=== PATIENT | male | born 1980 | race Caucasian/White ===

== ENCOUNTER 2017-10-15 09:31 | Emergency (ER) | payer MEDICAID ==
--- NOTE | 2017-10-15 10:09 | EDM.PDOC ---
ED HPI GENERAL MEDICAL PROBLEM - General Chief Complaint: ENT Problem Stated Complaint: LEFT EYE Time Seen by Provider: 10/15/17 09:45 Source of Information: Reports: Patient History Limitations: Reports: No Limitations - History of Present Illness INITIAL COMMENTS - FREE TEXT/NARRATIVE: Jose was sharpening a knife yesterday when a metallic fragment was suspected to drift onto the L eye. There has been residual pain, light sensitivity, lacrimation, redness, and fb sensation since. He did not try to wash out the eye. The right eye is asx. He has taken no meds. Left Eye Pain Score (Numeric/FACES): 2 - Related Data Allergies Allergy/AdvReac Type Severity Reaction Status Date / Time No Known Allergies Allergy Verified 10/15/17 09:49 ED ROS GENERAL - Review of Systems Review Of Systems: ROS reveals no pertinent complaints other than HPI. ED EXAM GENERAL W FULL EYE - Physical Exam Exam: See Below Exam Limited By: No Limitations General Appearance: Alert, WD/WN, Mild Distress Eye Exam: Right Eye: Normal Inspection, Left Eye: Foreign Body (cornea at 5 o' clock position with rust ring), Bilateral Eye: Conjunctival Injection, EOMI, Normal Fundi, PERRL Visual Acuity (R) 20/: 20 Visual Acuity (L) 20/: 20 With Correction: No Eyelids: Bilateral: Normal Appearance Conjunctiva & Sclera: Bilateral: Injected Cornea Exam: Right: Normal Appearance, Left: Foreign Body Extraocular Movements: Bilateral: Intact Pupils: Normal Accommodation Pupillary Size: Bilateral: 4 mm Pupillary Reaction: Bilateral: Brisk Anterior Chamber: Bilateral: Normal Appearance Posterior Chamber: Bilateral: Normal Funduscopic Ears: Normal External Exam Nose: Normal Inspection Throat/Mouth: Normal Inspection, Normal Oropharynx Head: Normocephalic Neck: Supple Respiratory/Chest: Lungs Clear Cardiovascular: Regular Rate, Rhythm Back Exam: Normal Inspection Extremities: Normal Inspection Neurological: Alert, Oriented, CN II-XII Intact Psychiatric: Normal Affect, Normal Mood Skin Exam: Warm, Dry Lymphatic: No Adenopathy Course - Vital Signs Text/Narrative:: The L eye was inspected, no fb detected involving the eyelids. Following introduction of Tetracaine 0.05%, inspection of L eye detects a metallic fb with rust ring at the 5 o'clock position; no limbic blush, anterior chamber deep , posterior chamber benign; moderate conjunctival injection; no exudate; attempt to lift ferrous debris produced some flaking, but residual debris remains. Jose was scheduled to see an [employer] this am at [facility] for slit lamp procedure to remove remaining ferrous debris and manage rust ring. He left the ED in stable condition. Last Recorded V/S: Last Vital Signs Temp 37.1 C 10/15/17 09:35 Pulse 112 H 10/15/17 09:35 Resp 18 10/15/17 09:35 BP 158/89 H 10/15/17 09:35 Pulse Ox 99 10/15/17 09:35 Departure - Departure Time of Disposition: 10:00 Disposition: Home, Self-Care 01 Condition: Fair Clinical Impression: Foreign body of left cornea with residual material Qualifiers: Encounter type: initial encounter Qualified Code(s): T15.02XA - Foreign body in cornea, left eye, initial encounter - Discharge Information Referrals: Urszula Sharp, [employer] [Primary Care Provider] - Forms: ED Department Discharge - Problem List & Annotations (1) Foreign body of left cornea with residual material SNOMED Code(s): 80886138 Code(s): T15.02XA - FOREIGN BODY IN CORNEA, LEFT EYE, INITIAL ENCOUNTER Status: Acute Current Visit: Yes Annotation/Comment:: Follow up with Optometry this am. Qualifiers: Encounter type: initial encounter Qualified Code(s): T15.02XA - Foreign body in cornea, left eye, initial encounter - Problem List Review Problem List Initiated/Reviewed/Updated: Yes - Assessment/Plan Plan: Follow up with Optometry this am.
== END 2017-10-15 10:00 | disposition home or self-care (01) ==
LOC: FB.ED 09:31
DX: T15.02XA Foreign body in cornea, left eye, initial encounter (principal); X58.XXXA Exposure to other specified factors, initial encounter
CPT/HCPCS: 99283